=== PATIENT | female | born 1975 | race Caucasian/White ===

== ENCOUNTER 2017-04-07 09:17 | Outpatient (CLI) | payer MEDICAID ==
[2017-04-07 13:01] LABS: BASOPHILS # (AUTO) 0.1 10^3/uL (0.0-0.1); BASOPHILS % (AUTO) 0.7 %; EOSINOPHILS # (AUTO) 0.4 10^3/uL (0.0-0.7); EOSINOPHILS % (AUTO) 5.1 %; HCT - HEMATOCRIT 38.8 % (37.0-47.0); HGB - HEMOGLOBIN 12.9 g/dL (12.0-16.0); LYMPHOCYTES % (AUTO) 24.2 %; MEAN CORPUSCULAR HEMOGLOBIN 28.4 pg (27.0-31.0); MEAN CORPUSCULAR HGB CONC 33.3 g/dL (32.0-36.0); MEAN CORPUSCULAR VOLUME 85.3 fL (81.0-99.0); MONOCYTES # (AUTO) 0.5 10^3/uL (0.0-1.0); MONOCYTES % (AUTO) 6.3 %; NEUTROPHILS # (AUTO) 5.3 10^3/uL (1.5-6.6); NEUTROPHILS % (AUTO) 63.7 %; RED BLOOD COUNT 4.55 10^6/uL (4.20-5.40); RED CELL DISTRIBUTION WIDTH 14.2 % (12.0-15.0); UNCORRECTED WHITE BLOOD COUNT 8.3 x10^3/uL; WHITE BLOOD COUNT 8.3 x10^3/uL (4.8-10.8)
[2017-04-07 13:21] LABS: ALBUMIN/GLOBULIN RATIO 1.4 (1.0-2.2); BILIRUBIN,TOTAL 0.4 mg/dL (0.2-1.0); BUN - BLOOD UREA NITROGEN 14 mg/dL (6-20); CALCIUM 9.1 mg/dL (8.5-10.3); CARBON DIOXIDE - CO2 26 mmol/L (21-32); CHLORIDE 106 mmol/L (101-111); CHOL/HDL RATIO 3.6 (<4.4); CHOLESTEROL 199 mg/dL; CREATININE 0.8 mg/dL (0.4-1.0); GFR - MDRD 78 (>89); GLUCOSE 106 mg/dL (70-100); HDL CHOLESTEROL 56 mg/dL; LDL/HDL RATIO 2.2 (<4.4); POTASSIUM 3.9 mmol/L (3.5-5.0); SODIUM 139 mmol/L (135-145); TOTAL PROTEIN 7.1 g/dL (6.7-8.2); TRIGLYCERIDES 105 mg/dL; VLDL CHOLESTEROL 21 mg/dL
== END 2017-04-07 09:18 | disposition home or self-care (01) ==
LOC: LAB.N 09:17
PROVIDERS: ATTEND Family Medicine
DX: F41.1 Generalized anxiety disorder (principal); G89.4 Chronic pain syndrome; Z79.899 Other long term (current) drug therapy
CPT/HCPCS: 36415; 80053; 80061; 84443; 85025

== ENCOUNTER 2017-05-16 20:15 | Emergency (ER) | payer MEDICAID ==
--- NOTE | 2017-05-16 21:08 | ED Physician Documentation ---
History of Present Illness - Stated complaint Stated Complaint: RT HIP PX/ANXIETY - Chief complaint Chief Complaint: Ext Problem - History obtained from History obtained from: Patient - History of Present Illness Timing: How many weeks ago (3) Pain level max: 9 Pain level now: 9 Improved by: rest Worsened by: movement - Additonal information Additional information: States R hip pain chronically, worse for past 3 weeks. States worse with movement. Takes tizanidine and oxycodone daily. Is on 40mg of oxycodone daily. No recent injury. No falls. Patient is on a pain management contract. 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 - Present Medications Home Medications: Ambulatory Orders Medication Instructions Recorded Confirmed Albuterol Sulfate [Albuterol 2 puffs INH Q6HR 06/12/14 05/16/17 Sulfate Hfa] Fluticasone/Salmeterol [Advair 1 puffs INH DAILY 06/12/14 05/16/17 500-50 Diskus] Hydroxyzine HCl 25 mg PO DAILY 06/12/14 05/16/17 oxyCODONE [Roxicodone] 5 mg PO DAILY 06/12/14 05/16/17 Fluticasone [Flonase] 1 sprays TAMMY BID #1 bottle 03/08/15 05/16/17 Butalb/Acetaminophen/Caffeine 1 tab PO PRN PRN 05/16/17 05/16/17 [Piytdg-Kdunxqrc-Hfbs 50-325-40] LORazepam [Ativan] 0.5 mg PO Q8H PRN #7 tablet 05/16/17 Prednisone 40 mg PO DAILY #10 tablet 05/16/17 - Allergies Allergies/Adverse Reactions: Allergies Allergy/AdvReac Type Severity Reaction Status Date / Time baclofen Allergy Respiratory Verified 05/16/17 20:43 NSAIDS (Non-Steroidal Allergy Edema Verified 05/16/17 20:43 Anti-Inflamma ipratropium AdvReac Unknown Verified 05/16/17 20:24 - Social History Does the pt smoke?: No Smoking Status: Never smoker Does the pt drink ETOH?: No Does the pt have substance abuse?: No - Immunizations Immunizations are current?: No - POLST Patient has POLST: No PD ED PE NORMAL - Vitals Vital signs reviewed: Yes - General General: Alert and oriented X 3, No acute distress - Neck Neck: Supple, no meningeal sign - Respiratory Respiratory: No respiratory distress, Clear bilaterally - Abdomen Abdomen: Soft, Non tender, Non distended - Back Back: No spinal TTP - Derm Derm: Warm and dry - Extremities Extremities: Other (Mild tenderness about the right hip. There is full range of motion present, but with some pain. No overlying skin changes. No evidence of septic joint. Neurovascularly intact) - Neuro Neuro: Alert and oriented X 3 - Psych Psych: Normal mood, Normal affect Results - Vitals Vitals: Vital Signs - 24 hr 05/16/17 05/16/17 20:21 21:35 Temperature 37.2 C Heart Rate 102 H 90 Respiratory 14 16 Rate Blood Pressure 168/98 H 145/88 H O2 Saturation 100 99 Oxygen O2 Source Room air - Labs Labs: Laboratory Tests 05/16/17 05/16/17 20:10 20:10 Urine Color YELLOW Urine Clarity HAZY Urine pH 6.0 Ur Specific [place] 1.010 Urine Protein NEGATIVE Urine Glucose (UA) NEGATIVE Urine Ketones NEGATIVE Urine Occult Blood SMALL H Urine Nitrite NEGATIVE Urine Bilirubin NEGATIVE Urine Urobilinogen 0.2 (NORMAL) Ur Leukocyte Esterase NEGATIVE Urine RBC 6-10 H Urine WBC 6-10 H Ur Squamous Epith Cells NONE SEEN Urine Bacteria Rare Ur Microscopic Review INDICATED Urine Culture Comments INDICATED Urine HCG, Qual NEGATIVE Urine Opiates Screen NEGATIVE Ur Oxycodone Screen POSITIVE H Urine Methadone Screen NEGATIVE Ur Propoxyphene Screen NEGATIVE Ur Barbiturates Screen POSITIVE H Ur Tricyclics Screen NEGATIVE Ur Phencyclidine Scrn NEGATIVE Ur Amphetamine Screen NEGATIVE U Methamphetamines Scrn NEGATIVE U Benzodiazepines Scrn NEGATIVE Urine Cocaine Screen NEGATIVE U Cannabinoids Screen NEGATIVE PD MEDICAL DECISION MAKING - ED course Complexity details: reviewed results, re-evaluated patient, considered differential, d/w patient ED course: Patient is a 41-year-old female who presents to the emergency department with worsening right hip pain. She does use a cane to ambulate at home, but is not currently using this in the emergency department. Steroids have helped in the past and so was given a dose of dexamethasone will prescribe prednisone for home. She also states she has increasing anxiety and is out of her anxiety medication. Will prescribe a small amount of benzodiazepines for her. She is on the pain management contract and does not want any narcotics at this time. Patient is also driving home. She was given crutches to help take the weight off of the leg, but is using them more as assistive walking devices. Patient is well-appearing, nontoxic. Afebrile. Patient counseled regarding signs and symptoms for which I believe and urgent re-evaluation would be necessary. Patient with good understanding of and agreement to plan and is comfortable going home at this time This document was made in part using voice recognition software. While efforts are made to proofread this document, sound alike and grammatical errors may occur. Departure - Departure Disposition: Home, Self Care Clinical Impression: Anxiety Osteoarthritis Qualifiers: Osteoarthritis location: hip Osteoarthritis type: unspecified Laterality: right Qualified Code(s): M16.11 - Unilateral primary osteoarthritis, right hip Condition: Good Instructions: ED Degenerative Joint Disease Follow-Up: Michael Dumont MD [Primary Care Provider] - Within 1 week Prescriptions: LORazepam [Ativan] 0.5 mg PO Q8H PRN #7 tablet PRN Reason: Anxiety Prednisone 40 mg PO DAILY #10 tablet Comments: Return if you worsen. do not drive or operate heavy machinery while taking ativan. Your blood pressure was elevated today on check in to the emergency department. This does not mean that you have hypertension, it is a common phenomenon to check into the emergency department and have elevated blood pressure. I recommend that you see your primary care physician within the week to have it rechecked when you're feeling better. Discharge Date/Time: 05/16/17 21:41
[2017-05-16 21:22] LABS: BILIRUBIN,URINE NEGATIVE (NEGATIVE)
[2017-05-16] MEDS ORDERED: CHERRY SYRUP 10 ML UDC PO ONE (21:24)
[2017-05-16] MEDS ORDERED: DEXAMETHASONE 10 MG/ML VIAL ONE (21:24)
[2017-05-16] MEDS ORDERED: DEXAMETHASONE 10 MG/ML VIAL PO STA (21:24)
[2017-05-16 21:27] LABS: UA w/ MICROSCOPIC CHARGE YES
[2017-05-16 21:39] LABS: HCG UR QUAL NEGATIVE
[2017-05-16 21:41] VITALS: BP 145/88
[2017-05-16 21:53] LABS: UR CULTURE IF IND INDICATED
== END 2017-05-16 21:41 | disposition home or self-care (01) ==
LOC: ED 20:15
DX: F41.9 Anxiety disorder, unspecified (principal); M16.11 Unilateral primary osteoarthritis, right hip; R03.0 Elevated blood-pressure reading, without diagnosis of hypertension; J45.909 Unspecified asthma, uncomplicated
CPT/HCPCS: 80306; 81001; 81025; 87086; 99283; A9270; 81003

== ENCOUNTER 2017-10-06 18:49 | Emergency (ER) | payer MEDICAID ==
[2017-10-06 19:10] VITALS: BP 150/99
--- NOTE | 2017-10-06 19:58 | XRAY Preliminary Report ---
Exam: XR CHEST 2 VIEW PA/LAT IMPRESSION: No acute disease. [facility] SITE ID: [id number]
--- NOTE | 2017-10-06 20:01 | XRAY Report ---
EXAM: CHEST RADIOGRAPHY EXAM DATE: 10/06/2017 07:42 PM. CLINICAL HISTORY: Cough. COMPARISON: 09/11/2017, 03/28/2011, and 08/31/2010. TECHNIQUE: 2 views. FINDINGS: Lungs/Pleura: No localized infiltrate, consolidation, effusion, or pneumothorax. Mediastinum: Heart and mediastinal contours are unremarkable. Other: Mild degenerative changes. IMPRESSION: No acute disease. [facility] Referring Provider Line: [phone] SITE ID: [id number]
--- NOTE | 2017-10-06 20:56 | ED Physician Documentation ---
PD HPI URI - Stated complaint Stated Complaint: CONGESTION/ST - Chief complaint Chief Complaint: Resp - History obtained from History obtained from: Patient - History of Present Illness Timing - onset: How many days ago (10) Timing duration: Days (10) Timing details: Gradual onset, Still present (was improving some after a week, now worse the past few days.) Associated symptoms: Fever, Sinus pain, Sore throat, Productive cough Contributing factors: COPD / asthma. No: Sick contact, Travel, Immunocompromised Worsened by: Activity, Breathing, Other (cough) Similar symptoms before: Has not had sx before Recently seen: Not recently seen Review of Systems Constitutional: reports: Fever, Chills, Myalgias Nose: reports: Rhinorrhea / runny nose, Sinus pressure / pain Cardiac: denies: Chest pain / pressure Respiratory: reports: Dyspnea, Cough GI: reports: Vomiting. 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: section - Present Medications Home Medications: Ambulatory Orders Medication Instructions Recorded Confirmed Albuterol Sulfate [Albuterol 2 puffs INH Q6HR 06/12/14 05/16/17 Sulfate Hfa] Fluticasone/Salmeterol [Advair 1 puffs INH DAILY 06/12/14 05/16/17 500-50 Diskus] Hydroxyzine HCl 25 mg PO DAILY 06/12/14 05/16/17 oxyCODONE [Roxicodone] 5 mg PO DAILY 06/12/14 05/16/17 Fluticasone [Flonase] 1 sprays TAMMY BID #1 bottle 03/08/15 05/16/17 Butalb/Acetaminophen/Caffeine 1 tab PO PRN PRN 05/16/17 05/16/17 [Gaurnt-Xjclzreh-Rogo 50-325-40] LORazepam [Ativan] 0.5 mg PO Q8H PRN #7 tablet 05/16/17 predniSONE [Prednisone] 40 mg PO DAILY #10 tablet 05/16/17 Amoxicillin 500 mg PO Q8H #30 capsule 09/11/17 Oxymetazoline HCl [Afrin] 2 spray NS BID PRN #1 bottle 09/11/17 predniSONE [Deltasone] 60 mg PO DAILY 5 Days tablet 09/11/17 Albuterol Sulf [Ventolin Hfa 1 - 2 puffs INH Q4HR PRN #1 inhaler 10/06/17 Inhaler] Azithromycin [Zithromax] 250 mg PO DAILY #4 tablet 10/06/17 Benzonatate [Tessalon] 100 mg PO TID PRN #25 capsule 10/06/17 Dexamethasone [Decadron] 4 mg PO DAILY #5 tablet 10/06/17 guaiFENesin/CODEINE [Robitussin AC] 10 ml PO Q6H PRN #240 ml 10/06/17 - Allergies Allergies/Adverse Reactions: Allergies Allergy/AdvReac Type Severity Reaction Status Date / Time baclofen Allergy Respiratory Verified 10/06/17 19:10 NSAIDS (Non-Steroidal Allergy Edema Verified 10/06/17 19:10 Anti-Inflamma ipratropium AdvReac Unknown Verified 10/06/17 19:10 - Social History Does the pt smoke?: No Smoking Status: Never smoker Does the pt drink ETOH?: No Does the pt have substance abuse?: No - Immunizations Immunizations are current?: No - POLST Patient has POLST: No PD ED PE NORMAL - Vitals Vital signs reviewed: Yes - General General: Alert and oriented X 3, Well developed/nourished - HEENT HEENT: Ears normal, Pharynx benign - Neck Neck: Supple, no meningeal sign, No adenopathy - Cardiac Cardiac: RRR, No murmur - Respiratory Respiratory: Clear bilaterally - Abdomen Abdomen: Soft, Non tender - Back Back: No CVA TTP - Derm Derm: Normal color, Warm and dry - Extremities Extremities: No deformity, No tenderness to palpate, No edema, No calf tenderness / cord - Neuro Neuro: Alert and oriented X 3, No motor deficit, Normal speech Results - Vitals Vitals: Oxygen O2 Source Room air - Rads (name of study) chest xray Radiology: Prelim report reviewed (no acute process) PD MEDICAL DECISION MAKING - ED course Complexity details: considered differential, d/w patient Departure - Departure Disposition: Home, Self Care Clinical Impression: Bronchitis Otitis media Qualifiers: Otitis media type: suppurative Chronicity: acute Laterality: left Recurrence: not specified as recurrent Spontaneous tympanic membrane rupture: without spontaneous rupture Qualified Code(s): H66.002 - Acute suppurative otitis media without spontaneous rupture of ear drum, left ear Clinical Impression: (Ruled Out): Pneumonia Condition: Stable Record reviewed to determine appropriate education?: Yes Instructions: ED Upper Resp Infec Abx Tx, ED Otitis Media Acute Adult Follow-Up: Екатерина Vigil ARNP [Primary Care Provider] - Prescriptions: Albuterol Sulf [Ventolin Hfa Inhaler] 1 - 2 puffs INH Q4HR PRN #1 inhaler PRN Reason: Shortness Of Air/Wheezing Azithromycin [Zithromax] 250 mg PO DAILY #4 tablet Benzonatate [Tessalon] 100 mg PO TID PRN #25 capsule PRN Reason: Cough Dexamethasone [Decadron] 4 mg PO DAILY #5 tablet guaiFENesin/CODEINE [Robitussin AC] 10 ml PO Q6H PRN #240 ml PRN Reason: Cough Comments: Drink lots of fluids. Continue albuterol inhaler 2 puffs 4 times a day and extra doses as needed. Use Decadron steroid daily for 5 more days. Finish the Zithromax course of 5 days treatment. Use Tessalon if needed for cough. Add hydrocodone or codeine as a cough suppressant and to help with pain. The Zithromax should help with bronchial and ear infections. Recheck if not improving over the next few days. Discharge Date/Time: 10/06/17 22:17
[2017-10-06] MEDS ORDERED: ALBUTEROL NEB 2.5 MG/3 ML INH STA (21:17)
[2017-10-06] MEDS ORDERED: DEXAMETHASONE 10 MG/ML VIAL PO STA (21:17)
[2017-10-06] MEDS ORDERED: HYDROcod/ACET 5/325 Prepack 6 PO ONE ×2 (21:17→21:29)
[2017-10-06] MEDS ORDERED: AZITHROMYCIN 250 MG TABLET PO STA (21:17)
[2017-10-06] MEDS ORDERED: BENZONATATE 100 MG CAPSULE PO STA (21:17)
[2017-10-06] MEDS ORDERED: AZITHROMYCIN 250 MG TABLET PO ONE (21:28)
[2017-10-06] MEDS ORDERED: BENZONATATE 100 MG CAPSULE PO ONE (21:28)
[2017-10-06] MEDS ORDERED: DEXAMETHASONE 10 MG/ML VIAL ONE (21:28)
[2017-10-06] MEDS ORDERED: CHERRY SYRUP 10 ML UDC PO ONE (21:29)
[2017-10-06] MEDS ORDERED: ALBUTEROL NEB 2.5 MG/3 ML INH ONE (21:42)
== END 2017-10-06 22:17 | disposition home or self-care (01) ==
LOC: ED 18:49
DX: J40 Bronchitis, not specified as acute or chronic (principal); H66.002 Acute suppurative otitis media without spontaneous rupture of ear drum, left ear
CPT/HCPCS: 71020; 94640; 99283; A9270; J7613

== ENCOUNTER 2018-06-11 22:20 | Emergency (ER) | payer MEDICAID ==
--- NOTE | 2018-06-11 22:35 | ED Physician Documentation ---
History of Present Illness - Stated complaint Stated Complaint: L KNEE/LEG PX - Chief complaint Chief Complaint: Ext Problem - History obtained from History obtained from: Patient - History of Present Illness Timing: How many weeks ago (1) Pain level max: 8 Pain level now: 6 Improved by: rest Worsened by: movement, weight-bearing - Additonal information Additional information: c/o 1 week of left knee pain and swelling, sudden onset when she sustained a twisting injury to the knee Review of Systems Constitutional: denies: Fever Cardiac: denies: Chest pain / pressure Respiratory: denies: Dyspnea Skin: denies: Rash Musculoskeletal: reports: Joint pain, Extremity swelling, Joint swelling, Pain with weight bearing Neurologic: denies: Focal weakness, Numbness PD PAST MEDICAL HISTORY - Past Medical History Cardiovascular: None Respiratory: Asthma Endocrine/Autoimmune: None GI: None 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 : None HEENT: None Psych: Anxiety Musculoskeletal: Osteoarthritis Derm: None - Past Surgical History Past Surgical History: Yes /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: section - Present Medications Home Medications: Ambulatory Orders Medication Instructions Recorded Confirmed Albuterol Sulfate [Albuterol 2 puffs INH Q6HR 06/12/14 05/16/17 Sulfate Hfa] Fluticasone/Salmeterol [Advair 1 puffs INH DAILY 06/12/14 05/16/17 500-50 Diskus] Hydroxyzine HCl 25 mg PO DAILY 06/12/14 05/16/17 oxyCODONE [Roxicodone] 5 mg PO DAILY 06/12/14 05/16/17 Fluticasone [Flonase] 1 sprays TAMMY BID #1 bottle 03/08/15 05/16/17 Butalb/Acetaminophen/Caffeine 1 tab PO PRN PRN 05/16/17 05/16/17 [Iyqctv-Codndtkh-Xqnr 50-325-40] LORazepam [Ativan] 0.5 mg PO Q8H PRN #7 tablet 05/16/17 predniSONE [Prednisone] 40 mg PO DAILY #10 tablet 05/16/17 Amoxicillin 500 mg PO Q8H #30 capsule 09/11/17 Oxymetazoline HCl [Afrin] 2 spray NS BID PRN #1 bottle 09/11/17 predniSONE [Deltasone] 60 mg PO DAILY 5 Days tablet 09/11/17 Albuterol Sulf [Ventolin Hfa 1 - 2 puffs INH Q4HR PRN #1 inhaler 10/06/17 Inhaler] Azithromycin [Zithromax] 250 mg PO DAILY #4 tablet 10/06/17 Benzonatate [Tessalon] 100 mg PO TID PRN #25 capsule 10/06/17 Dexamethasone [Decadron] 4 mg PO DAILY #5 tablet 10/06/17 guaiFENesin/CODEINE [Robitussin AC] 10 ml PO Q6H PRN #240 ml 10/06/17 Cyclobenzaprine [Flexeril] 10 mg PO TID PRN #20 tablet 06/12/18 HYDROcod/ACETAM 5/325 [[place] 5/325] 1 - 2 ea PO Q6H PRN #15 tablet 06/12/18 predniSONE [Prednisone] 40 mg PO DAILY #6 tablet 06/12/18 - Allergies Allergies/Adverse Reactions: Allergies Allergy/AdvReac Type Severity Reaction Status Date / Time baclofen Allergy Respiratory Verified 06/11/18 22:34 NSAIDS (Non-Steroidal Allergy Edema Verified 06/11/18 22:34 Anti-Inflamma ipratropium AdvReac Unknown Verified 06/11/18 22:34 - Social History Does the pt smoke?: No Smoking Status: Never smoker Does the pt drink ETOH?: No Does the pt have substance abuse?: No - Immunizations Immunizations are current?: No - POLST Patient has POLST: No PD ED PE NORMAL - Vitals Vital signs reviewed: Yes - General General: Alert and oriented X 3, No acute distress, Well developed/nourished - Cardiac Cardiac: RRR, No murmur - Respiratory Respiratory: No respiratory distress, Clear bilaterally - Derm Derm: Normal color, Warm and dry, No rash Results - Vitals Vitals: Vital Signs - 24 hr 06/11/18 06/11/18 06/11/18 22:31 23:15 23:33 Temperature 36.8 C Heart Rate 79 Respiratory 17 17 16 Rate Blood Pressure 145/95 H O2 Saturation 96 06/12/18 06/12/18 00:56 02:10 Temperature 36.5 C Heart Rate 83 Respiratory 12 17 Rate Blood Pressure 149/92 H O2 Saturation 96 Oxygen O2 Source Room air - Rads (name of study) LLE US Radiology: Prelim report reviewed, See rad report left knee xrays Radiology: Prelim report reviewed, See rad report PD MEDICAL DECISION MAKING - ED course Complexity details: reviewed results, re-evaluated patient, considered differential, d/w patient - Sepsis Event Vital Signs: Vital Signs - 24 hr 06/11/18 06/11/18 06/11/18 22:31 23:15 23:33 Temperature 36.8 C Heart Rate 79 Respiratory 17 17 16 Rate Blood Pressure 145/95 H O2 Saturation 96 06/12/18 06/12/18 00:56 02:10 Temperature 36.5 C Heart Rate 83 Respiratory 12 17 Rate Blood Pressure 149/92 H O2 Saturation 96 Oxygen O2 Source Room air Departure - Departure Disposition: Home, Self Care Clinical Impression: Left knee sprain Qualifiers: Encounter type: initial encounter Involved ligament of knee: unspecified ligament Qualified Code(s): S83.92XA - Sprain of unspecified site of left knee, initial encounter Condition: Good Instructions: ED Bandage Elastic Wrap, ED Knee Pain UKO, ED Sprain Knee Follow-Up: HARLEY HODGE [Primary Care Provider] - Within 1 week Prescriptions: Cyclobenzaprine [Flexeril] 10 mg PO TID PRN #20 tablet PRN Reason: Spasms HYDROcod/ACETAM 5/325 [[place] 5/325] 1 - 2 ea PO Q6H PRN #15 tablet PRN Reason: Pain predniSONE [Prednisone] 40 mg PO DAILY #6 tablet Discharge Date/Time: 06/12/18 02:12
--- NOTE | 2018-06-11 23:29 | XRAY Report ---
Procedure Date: 06/11/2018 Accession Number: [id number] / [id number] Procedure: XR - Knee 3 View LT CPT Code: FULL RESULT: EXAM: LEFT KNEE RADIOGRAPHY EXAM DATE: 06/11/2018 11:15 PM. CLINICAL HISTORY: Left knee pain. COMPARISON: None. TECHNIQUE: 3 views. FINDINGS: Bones: Normal. No fractures or bone lesions. Joints: Normal. No effusion. No subluxations. Soft Tissues: Normal. No soft tissue swelling. IMPRESSION: Normal knee radiography. [facility]
[2018-06-12 00:57] VITALS: BP 149/92
--- NOTE | 2018-06-12 01:32 | Ultrasound Report ---
Procedure Date: 06/12/2018 Accession Number: [id number] / [id number] Procedure: US - Duplex Ext Veins Left CPT Code: FULL RESULT: EXAM: LEFT LOWER EXTREMITY VENOUS ULTRASOUND EXAM DATE: 06/12/2018 12:16 AM. CLINICAL HISTORY: Pain, swelling. COMPARISON: None. TECHNIQUE: Real-time sonographic vascular imaging was performed by the window and door installer through the lower extremity utilizing both color-flow and Doppler spectral analysis. Multiple outside industrial sales representative static images were saved for review. FINDINGS: Common Femoral Vein (CFV): Normal. CFV-GSV Junction: Normal. Profunda Femoral Vein (PFV): Normal. Femoral Vein (FV) Prox: Normal. Femoral Vein (FV) Mid: Normal. Femoral Vein (FV) Dist: Normal. Popliteal Vein: Normal. Posterior Tibial Veins: Suboptimally visualized. Peroneal Veins: Suboptimally visualized. Other: The examination is limited, as he patient was unable to tolerate compression. IMPRESSION: Examination limited by patient's inability to tolerate compression, but no definite evidence for deep venous thrombosis in the visualized segments. [facility]
[2018-06-12] MEDS ORDERED: HYDROcod/ACET 5/325 Prepack 4 PO STA (01:58)
[2018-06-12] MEDS ORDERED: CYCLOBENZAPRINE 10 MG Prepack 2 PO PRN (01:58)
[2018-06-12] MEDS ORDERED: predniSONE 20 MG TABLET PO STA (01:59)
== END 2018-06-12 02:12 | disposition home or self-care (01) ==
LOC: ED 22:20
DX: S83.92XA Sprain of unspecified site of left knee, initial encounter (principal); X50.1XXA Overexertion from prolonged static or awkward postures, initial encounter
CPT/HCPCS: 73562; 93971; 99283; J7512

== ENCOUNTER 2018-09-12 22:11 | Emergency (ER) | payer MEDICAID ==
[2018-09-12] MEDS ORDERED: ALBUTEROL NEB 2.5 MG/3 ML INH STA (22:27)
[2018-09-12] MEDS ORDERED: DEXAMETHASONE 10 MG/ML VIAL PO STA (22:28)
[2018-09-12] MEDS ORDERED: CHERRY SYRUP 10 ML UDC PO ONE (22:31)
--- NOTE | 2018-09-12 22:54 | ED Physician Documentation ---
History of Present Illness - Stated complaint Stated Complaint: ASTHMA ATTACK - Chief complaint Chief Complaint: Resp - Additonal information Additional information: 43-year-old female presents the emergency department with complaints of wheezing and shortness of breath which is not improved with her normal albuterol treatments. The patient also reports URI symptoms which is triggered her asthma. Symptoms are described as moderate. No other associated symptoms. Symptoms were worse this evening just prior to arrival. 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 : None HEENT: None Psych: Anxiety Musculoskeletal: Osteoarthritis Derm: None - Past Surgical History Past Surgical History: 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: 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 - Present Medications Home Medications: Ambulatory Orders Medication Instructions Recorded Confirmed Albuterol Sulfate [Albuterol 2 puffs INH Q6HR 06/12/14 05/16/17 Sulfate Hfa] Fluticasone/Salmeterol [Advair 1 puffs INH DAILY 06/12/14 05/16/17 500-50 Diskus] Hydroxyzine HCl 25 mg PO DAILY 06/12/14 05/16/17 oxyCODONE [Roxicodone] 5 mg PO DAILY 06/12/14 05/16/17 Fluticasone [Flonase] 1 sprays TAMMY BID #1 bottle 03/08/15 05/16/17 Butalb/Acetaminophen/Caffeine 1 tab PO PRN PRN 05/16/17 05/16/17 [Sytdbv-Tnbhyvyl-Eoxn 50-325-40] LORazepam [Ativan] 0.5 mg PO Q8H PRN #7 tablet 05/16/17 predniSONE [Prednisone] 40 mg PO DAILY #10 tablet 05/16/17 Amoxicillin 500 mg PO Q8H #30 capsule 09/11/17 Oxymetazoline HCl [Afrin] 2 spray NS BID PRN #1 bottle 09/11/17 predniSONE [Deltasone] 60 mg PO DAILY 5 Days tablet 09/11/17 Albuterol Sulf [Ventolin Hfa 1 - 2 puffs INH Q4HR PRN #1 inhaler 10/06/17 Inhaler] Azithromycin [Zithromax] 250 mg PO DAILY #4 tablet 10/06/17 Benzonatate [Tessalon] 100 mg PO TID PRN #25 capsule 10/06/17 Dexamethasone [Decadron] 4 mg PO DAILY #5 tablet 10/06/17 guaiFENesin/CODEINE [Robitussin AC] 10 ml PO Q6H PRN #240 ml 10/06/17 Cyclobenzaprine [Flexeril] 10 mg PO TID PRN #20 tablet 06/12/18 HYDROcod/ACETAM 5/325 [[place] 5/325] 1 - 2 ea PO Q6H PRN #15 tablet 06/12/18 predniSONE [Prednisone] 40 mg PO DAILY #6 tablet 06/12/18 Benzonatate [Tessalon Perle] 100 - 200 mg PO TID PRN #30 capsule 09/12/18 - Allergies Allergies/Adverse Reactions: Allergies Allergy/AdvReac Type Severity Reaction Status Date / Time baclofen Allergy Respiratory Verified 09/12/18 22:19 NSAIDS (Non-Steroidal Allergy Edema Verified 09/12/18 22:19 Anti-Inflamma ipratropium AdvReac Unknown Verified 09/12/18 22:19 - Social History Does the pt smoke?: No Smoking Status: Never smoker Does the pt drink ETOH?: No Does the pt have substance abuse?: No - Immunizations Immunizations are current?: No - POLST Patient has POLST: No PD ED PE NORMAL - General General: Alert and oriented X 3, No acute distress - HEENT HEENT: Atraumatic, PERRL, EOMI, Ears normal - Neck Neck: Supple, no meningeal sign - Cardiac Cardiac: RRR, Strong equal pulses - Respiratory Respiratory: No respiratory distress. No: Clear bilaterally (Bilateral expiratory wheezing) - Back Back: No CVA TTP - Derm Derm: Normal color - Neuro Neuro: Alert and oriented X 3, Normal speech - Psych Psych: Normal mood Results - Vitals Vitals: Vital Signs - 24 hr 11/07/18 11/07/18 11/07/18 22:13 22:44 23:37 Temperature 36.8 C Heart Rate 88 101 H Respiratory 18 20 16 Rate Blood Pressure 168/84 H 155/92 H O2 Saturation 97 100 Oxygen O2 Source Room air PD MEDICAL DECISION MAKING - ED course ED course: The patient was treated with albuterol in the emergency department and had good improvement. I reevaluation the patient resting comfortably and her symptoms are under much better control. Currently, the patient appears appropriate for discharge and ongoing outpatient management. The patient's symptoms seem to be triggered from a viral upper respiratory tract infection. I discussed with the patient warning signs and recommended returning to the emergency department immediately for any worsening or any concerns. Departure - Departure Disposition: 01 Home, Self Care Clinical Impression: Viral URI with cough Asthma exacerbation Qualifiers: Asthma severity: moderate Asthma persistence: unspecified Qualified Code(s): J45.901 - Unspecified asthma with (acute) exacerbation Condition: Good Instructions: ED Bronchitis Asthmatic Ch Follow-Up: HARLEY HODGE [Primary Care Provider] - Within 1 week Prescriptions: Benzonatate [Tessalon Perle] 100 - 200 mg PO TID PRN #30 capsule PRN Reason: Cough Comments: Please return to the emergency department for worsening symptoms or any concerns Discharge Date/Time: 09/12/18 23:44
[2018-09-12 23:44] VITALS: BP 155/92
== END 2018-09-12 23:44 | disposition home or self-care (01) ==
LOC: ED 22:11
DX: J06.9 Acute upper respiratory infection, unspecified (principal); J45.901 Unspecified asthma with (acute) exacerbation; Z79.899 Other long term (current) drug therapy; Z79.51 Long term (current) use of inhaled steroids
CPT/HCPCS: 99283; A9270

== ENCOUNTER 2019-05-08 11:58 | Emergency (ER) | payer MEDICAID ==
[2019-05-08] MEDS ORDERED: PROPARACAINE 0.5% OPHTH DROPS 15 ML EACHEYE STA (12:15)
--- NOTE | 2019-05-08 12:16 | ED Physician Documentation ---
PD HPI OPHTHO - Stated complaint Stated Complaint: RT EYE INJ - Chief complaint Chief Complaint: Heent - History obtained from History obtained from: Patient - History of Present Illness Timing - onset: Last night Timing - duration: Days (1) Timing - details: Abrupt onset, Still present Location: Right Quality / character: Sharp Associated symptoms: Redness, FB sensation (She states she was wrestling with her teenage daughter and accidentally got poked in the eye with the finger. She did irrigated out last night in case there was something in it. She states it was uncomfortable for eye motion and some light sensitivity. The discomfort continued into today. There was some slight crusting along the medial canthus in the morning but no ongoing discharge.), Photophobia. No: Swelling, Discharge, Loss of vision, Headache Contributing factors: Blunt trauma. No: Wears contacts Similar symptoms before: Has not had sx before Recently seen: Not recently seen Review of Systems Constitutional: denies: Fever, Chills, Myalgias Eyes: reports: Photophobia, Irritation. 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: None : None HEENT: None Psych: Anxiety Musculoskeletal: Osteoarthritis Derm: None - Past Surgical History Past Surgical History: Yes /REGISTERED DIET TECHNICIAN: section - Present Medications Home Medications: Ambulatory Orders Medication Instructions Recorded Confirmed Albuterol Sulfate [Albuterol 2 puffs INH Q6HR 06/12/14 05/16/17 Sulfate Hfa] Fluticasone/Salmeterol [Advair 1 puffs INH DAILY 06/12/14 05/16/17 500-50 Diskus] RX: Hydroxyzine HCl 25 mg PO DAILY 06/12/14 05/16/17 RX: oxyCODONE [Roxicodone] 5 mg PO DAILY 06/12/14 05/16/17 Fluticasone [Flonase] 1 sprays TAMMY BID #1 bottle 03/08/15 05/16/17 Butalb/Acetaminophen/Caffeine 1 tab PO PRN PRN 05/16/17 05/16/17 [Lwnqkj-Ppyrneej-Pgzf 50-325-40] LORazepam [Ativan] 0.5 mg PO Q8H PRN #7 tablet 05/16/17 RX: predniSONE [Prednisone] 40 mg PO DAILY #10 tablet 05/16/17 Oxymetazoline HCl [Afrin] 2 spray NS BID PRN #1 bottle 09/11/17 RX: Amoxicillin 500 mg PO Q8H #30 capsule 09/11/17 RX: predniSONE [Deltasone] 60 mg PO DAILY 5 Days tablet 09/11/17 Azithromycin [Zithromax] 250 mg PO DAILY #4 tablet 10/06/17 Benzonatate [Tessalon] 100 mg PO TID PRN #25 capsule 10/06/17 RX: Albuterol Sulf [Ventolin Hfa 1 - 2 puffs INH Q4HR PRN #1 inhaler 10/06/17 Inhaler] dexAMETHasone [Decadron] 4 mg PO DAILY #5 tablet 10/06/17 guaiFENesin/CODEINE [Robitussin AC] 10 ml PO Q6H PRN #240 ml 10/06/17 Cyclobenzaprine [Flexeril] 10 mg PO TID PRN #20 tablet 06/12/18 RX: HYDROcod/ACETAM 5/325 [[place] 1 - 2 ea PO Q6H PRN #15 tablet 06/12/18 5/325] predniSONE [Prednisone] 40 mg PO DAILY #6 tablet 06/12/18 Benzonatate [Tessalon Perle] 100 - 200 mg PO TID PRN #30 capsule 09/12/18 RX: Ketotifen Fumarate 2 drops OP QID #1 bottle 05/08/19 Sulfacetamide 10% Ophth Drops 1 drops OPTH Q3H #1 bottle 05/08/19 [Sulfamide 10% Ophth Drops] - Allergies Allergies/Adverse Reactions: Allergies Allergy/AdvReac Type Severity Reaction Status Date / Time baclofen Allergy Respiratory Verified 09/12/18 22:19 NSAIDS (Non-Steroidal Allergy Edema Verified 09/12/18 22:19 Anti-Inflamma ipratropium AdvReac Unknown Verified 09/12/18 22:19 - Social History Does the pt smoke?: No Smoking Status: Never smoker Does the pt drink ETOH?: No Does the pt have substance abuse?: No - Immunizations Immunizations are current?: No - POLST Patient has POLST: No PD ED PE NORMAL - Vitals Vital signs reviewed: Yes - General General: Alert and oriented X 3, Well developed/nourished, Other (She is holding her right eye closed with her hand. She has discomfort with eye movement.) - HEENT HEENT: PERRL, EOMI PD ED PE EXPANDED - Eyes Eyes: Right eye, Injected conj/sclera, Corneal abrasion (circular small superficial abrasion right eye over iris area, at the 3 o'clock position. No deep uptake. ), Fluorescein uptake. No: Eyelid injury, Exudate, Conj/sclera FB, Corneal FB Results - Vitals Vitals: Vital Signs - 24 hr 05/08/19 05/08/19 12:04 12:58 Temperature 36.6 C 36.5 C Heart Rate 102 H 77 Respiratory 16 17 Rate Blood Pressure 149/93 H 148/99 H O2 Saturation 98 99 Oxygen O2 Source Room air PD MEDICAL DECISION MAKING - ED course Complexity details: re-evaluated patient (she feels quite improved with Proparacaine drops. This helped. Discussed use of it with the patient, in accordance with recent EM literature showing safety and efficacy provided one avoid repeat injury and does not use it more than 1-2 days withut rechecking. ), considered differential, d/w patient Departure - Departure Disposition: 01 Home, Self Care Clinical Impression: Corneal abrasion Condition: Stable Record reviewed to determine appropriate education?: Yes Instructions: ED Eye Injury Corneal Abrasion Follow-Up: Michael Belcher [Primary Care Provider] - Prescriptions: RX: Ketotifen Fumarate 2 drops OP QID #1 bottle Sulfacetamide 10% Ophth Drops [Sulfamide 10% Ophth Drops] 1 drops OPTH Q3H #1 bottle Comments: Use the antibiotic eyedrops and antihistamine eyedrops 4 times a day for the next few days. The abrasions typically heal on their own over a day or 2. There is a little bit of redness and increased blood flow through the eye which is likely irritation but will cover it for possible infection as well. Recheck if not improved over the next 1 to 2 days. Use the numbing eye drops as needed for discomfort with precautions we discussed. Discharge Date/Time: 05/08/19 13:10
[2019-05-08 12:59] VITALS: BP 148/99
== END 2019-05-08 13:10 | disposition home or self-care (01) ==
LOC: ED 11:58
DX: S05.01XA Injury of conjunctiva and corneal abrasion without foreign body, right eye, initial encounter (principal); W50.0XXA Accidental hit or strike by another person, initial encounter; Y93.83 Activity, rough housing and horseplay
CPT/HCPCS: 99283; J3490

== ENCOUNTER 2019-07-05 18:06 | Emergency (ER) | payer MEDICAID ==
[2019-07-05 18:16] VITALS: BP 141/105
[2019-07-05] MEDS ORDERED: predniSONE 20 MG TABLET PO STA (18:33)
--- NOTE | 2019-07-05 18:34 | ED Physician Documentation ---
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 Gets occasional episodes of overuse related lateral right foot pain with spasms. She has 1 of these now. Its been going on for the last few days. She feels like it came on because of its increased activity around the house. In the past she is had excellent relief with steroids with this.) Review of Systems Constitutional: reports: Reviewed and negative Cardiac: reports: Reviewed and negative Respiratory: reports: Reviewed and negative PD PAST MEDICAL HISTORY - Past Medical History Cardiovascular: None Respiratory: Asthma Neuro: None Endocrine/Autoimmune: None GI: None TRAFFIC POLICE OFFICER: None : None HEENT: None Psych: Anxiety Musculoskeletal: Osteoarthritis Derm: None - Past Surgical History Past Surgical History: Yes /TRAFFIC POLICE OFFICER: section - Present Medications Home Medications: Ambulatory Orders Medication Instructions Recorded Confirmed Albuterol Sulfate [Albuterol 2 puffs INH Q6HR 06/12/14 05/16/17 Sulfate Hfa] Fluticasone/Salmeterol [Advair 1 puffs INH DAILY 06/12/14 05/16/17 500-50 Diskus] Hydroxyzine HCl 25 mg PO DAILY 06/12/14 05/16/17 oxyCODONE [Roxicodone] 5 mg PO DAILY 06/12/14 05/16/17 Fluticasone [Flonase] 1 sprays TAMMY BID #1 bottle 03/08/15 05/16/17 Butalb/Acetaminophen/Caffeine 1 tab PO PRN PRN 05/16/17 05/16/17 [Wtixpl-Rqjjtnus-Mgzh 50-325-40] LORazepam [Ativan] 0.5 mg PO Q8H PRN #7 tablet 05/16/17 predniSONE [Prednisone] 40 mg PO DAILY #10 tablet 05/16/17 Amoxicillin 500 mg PO Q8H #30 capsule 09/11/17 Oxymetazoline HCl [Afrin] 2 spray NS BID PRN #1 bottle 09/11/17 predniSONE [Deltasone] 60 mg PO DAILY 5 Days tablet 09/11/17 Albuterol Sulf [Ventolin Hfa 1 - 2 puffs INH Q4HR PRN #1 inhaler 10/06/17 Inhaler] Azithromycin [Zithromax] 250 mg PO DAILY #4 tablet 10/06/17 Benzonatate [Tessalon] 100 mg PO TID PRN #25 capsule 10/06/17 dexAMETHasone [Decadron] 4 mg PO DAILY #5 tablet 10/06/17 guaiFENesin/CODEINE [Robitussin AC] 10 ml PO Q6H PRN #240 ml 10/06/17 Cyclobenzaprine [Flexeril] 10 mg PO TID PRN #20 tablet 06/12/18 HYDROcod/ACETAM 5/325 [[place] 5/325] 1 - 2 ea PO Q6H PRN #15 tablet 06/12/18 predniSONE [Prednisone] 40 mg PO DAILY #6 tablet 06/12/18 Benzonatate [Tessalon Perle] 100 - 200 mg PO TID PRN #30 capsule 09/12/18 Ketotifen Fumarate 2 drops OP QID #1 bottle 05/08/19 Sulfacetamide 10% Ophth Drops 1 drops OPTH Q3H #1 bottle 05/08/19 [Sulfamide 10% Ophth Drops] Hydrocodone/Acetaminophen 1 - 2 each PO Q6H PRN #14 tablet 07/05/19 [Hydrocodon-Acetaminophen 5-325] predniSONE [Deltasone] 60 mg PO DAILY 5 Days #15 tablet 07/05/19 - Allergies Allergies/Adverse Reactions: Allergies Allergy/AdvReac Type Severity Reaction Status Date / Time baclofen Allergy Respiratory Verified 07/05/19 18:17 NSAIDS (Non-Steroidal Allergy Edema Verified 07/05/19 18:17 Anti-Inflamma ipratropium AdvReac Unknown Verified 07/05/19 18:17 - Social History Does the pt smoke?: No Smoking Status: Never smoker Does the pt drink ETOH?: No Does the pt have substance abuse?: No - Immunizations Immunizations are current?: No - POLST Patient has POLST: No PD ED PE NORMAL - Vitals Vital signs reviewed: Yes - General General: Alert and oriented X 3, No acute distress - Neck Neck: Supple, no meningeal sign, No bony TTP - Extremities Extremities: Other (Right foot is flat without tenderness. There is some lateral swelling but no bony tenderness. No deformity. No evidence of infection, warmth, redness.) - Neuro Neuro: Alert and oriented X 3, Normal speech Results - Vitals Vitals: Vital Signs - 24 hr 07/05/19 18:11 Temperature 36.4 C L Heart Rate 97 Respiratory 16 Rate Blood Pressure 141/105 H O2 Saturation 95 Oxygen O2 Source Room air Departure - Departure Disposition: 01 Home, Self Care Clinical Impression: Right foot pain Condition: Good Record reviewed to determine appropriate education?: Yes Prescriptions: Hydrocodone/Acetaminophen [Hydrocodon-Acetaminophen 5-325] 1 - 2 each PO Q6H PRN #14 tablet PRN Reason: pain predniSONE [Deltasone] 60 mg PO DAILY 5 Days #15 tablet Comments: Return for new or worsening symptoms, especially fever, chills, redness, or intolerable pain. Follow-up with your doctor next week. Do not drink or drive while taking narcotic pain medication. Note that many narcotic pain relievers also contain Tylenol/acetaminophen. Please ensure that your total dose of acetaminophen from all sources does not exceed 3 g (3000 mg) per day. You may get constipated while on this medication. Take a stool softener such as Colace twice a day while you are on it. Also add an [id number]-jzg-dlijiyd laxative such as senna or MiraLAX on any day that you do not have a bowel movement. If you received a narcotic pain medication or sedative while in the emergency d epartment, do not drive for the next 24 hours. Your blood pressure was elevated today on check into the emergency department. This does not mean that you have hypertension, it is a common phenomenon to come to the emergency department and have elevated blood pressure. I recommend that you see your primary care physician within the week to have it rechecked when you are feeling better.
== END 2019-07-05 18:42 | disposition home or self-care (01) ==
LOC: ED 18:06
DX: M79.671 Pain in right foot (principal); G80.1 Spastic diplegic cerebral palsy; R03.0 Elevated blood-pressure reading, without diagnosis of hypertension
CPT/HCPCS: 99282; 99283; J7512

== ENCOUNTER 2019-10-05 16:28 | Emergency (ER) | payer MEDICAID ==
[2019-10-05 16:41] VITALS: BP 139/76
--- NOTE | 2019-10-05 16:46 | ED Physician Documentation ---
PD HPI LOWER EXT INJURY - Stated complaint Stated Complaint: SOA/BACK/FT PX - Chief complaint Chief Complaint: Ext Problem - History obtained from History obtained from: Patient - History of Present Illness PD HPI LOW EXT INJURY LOCATION: Right, Lower leg, Foot Type of injury: Twist (had some mild twisting of right foot positioning for xray and has some spasms since. h/o CP and has spasms at times. Also has had some URI symptoms with exac of her asthma. She says steroids help both of these conditions in the past.). No: Fall, Blunt / blow Timing - onset: Yesterday Timing - details: Gradual onset, Still present Associated symptoms: No: Weakness, Numbness Similar symptoms before: Diagnosis (spastic CP with spasms and inflammation at times.) Review of Systems Constitutional: denies: Fever, Chills Nose: reports: Congestion. 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 : None HEENT: None Psych: Anxiety Musculoskeletal: Osteoarthritis Derm: None - Past Surgical History Past Surgical History: Yes /GLOBAL SALES DIRECTOR: section - Present Medications Home Medications: Ambulatory Orders Medication Instructions Recorded Confirmed Albuterol Sulfate [Albuterol 2 puffs INH Q6HR 06/12/14 05/16/17 Sulfate Hfa] Fluticasone/Salmeterol [Advair 1 puffs INH DAILY 06/12/14 05/16/17 500-50 Diskus] Hydroxyzine HCl 25 mg PO DAILY 06/12/14 05/16/17 oxyCODONE [Roxicodone] 5 mg PO DAILY 06/12/14 05/16/17 Fluticasone [Flonase] 1 sprays TAMMY BID #1 bottle 03/08/15 05/16/17 Butalb/Acetaminophen/Caffeine 1 tab PO PRN PRN 05/16/17 05/16/17 [Rqxtiv-Lzbwhlpf-Fgwd 50-325-40] LORazepam [Ativan] 0.5 mg PO Q8H PRN #7 tablet 05/16/17 predniSONE [Prednisone] 40 mg PO DAILY #10 tablet 05/16/17 Amoxicillin 500 mg PO Q8H #30 capsule 09/11/17 Oxymetazoline HCl [Afrin] 2 spray NS BID PRN #1 bottle 09/11/17 predniSONE [Deltasone] 60 mg PO DAILY 5 Days tablet 09/11/17 Albuterol Sulf [Ventolin Hfa 1 - 2 puffs INH Q4HR PRN #1 inhaler 10/06/17 Inhaler] Azithromycin [Zithromax] 250 mg PO DAILY #4 tablet 10/06/17 Benzonatate [Tessalon] 100 mg PO TID PRN #25 capsule 10/06/17 dexAMETHasone [Decadron] 4 mg PO DAILY #5 tablet 10/06/17 guaiFENesin/CODEINE [Robitussin AC] 10 ml PO Q6H PRN #240 ml 10/06/17 Cyclobenzaprine [Flexeril] 10 mg PO TID PRN #20 tablet 06/12/18 HYDROcod/ACETAM 5/325 [[place] 5/325] 1 - 2 ea PO Q6H PRN #15 tablet 06/12/18 predniSONE [Prednisone] 40 mg PO DAILY #6 tablet 06/12/18 Benzonatate [Tessalon Perle] 100 - 200 mg PO TID PRN #30 capsule 09/12/18 Ketotifen Fumarate 2 drops OP QID #1 bottle 05/08/19 Sulfacetamide 10% Ophth Drops 1 drops OPTH Q3H #1 bottle 05/08/19 [Sulfamide 10% Ophth Drops] Hydrocodone/Acetaminophen 1 - 2 each PO Q6H PRN #14 tablet 07/05/19 [Hydrocodon-Acetaminophen 5-325] predniSONE [Deltasone] 60 mg PO DAILY 5 Days #15 tablet 07/05/19 dexAMETHasone [Decadron] 4 mg PO DAILY #7 tablet 10/05/19 - Allergies Allergies/Adverse Reactions: Allergies Allergy/AdvReac Type Severity Reaction Status Date / Time baclofen Allergy Respiratory Verified 10/05/19 16:37 NSAIDS (Non-Steroidal Allergy Edema Verified 10/05/19 16:37 Anti-Inflamma ipratropium AdvReac Unknown Verified 10/05/19 16:37 - Social History Does the pt smoke?: No Smoking Status: Never smoker Does the pt drink ETOH?: No Does the pt have substance abuse?: No - Immunizations Immunizations are current?: No - POLST Patient has POLST: No PD ED PE NORMAL - Vitals Vital signs reviewed: Yes - General General: Alert and oriented X 3, No acute distress, Well developed/nourished - HEENT HEENT: Moist mucous membranes, Pharynx benign - Neck Neck: Supple, no meningeal sign, No adenopathy - Cardiac Cardiac: RRR, No murmur - Respiratory Respiratory: No: Clear bilaterally (mild exp wheezes noted. No work of breathing. ) - Derm Derm: Normal color, Warm and dry - Extremities Extremities: Other (feet with some lateral deviation and deformity c/w CP. no noted sores/redness/drainage. ) - Neuro Neuro: Alert and oriented X 3, No motor deficit, No sensory deficit Results - Vitals Vitals: Vital Signs - 24 hr 10/05/19 16:37 Temperature 36.6 C Heart Rate 106 H Respiratory 18 Rate Blood Pressure 139/76 H O2 Saturation 97 Oxygen O2 Source Room air PD MEDICAL DECISION MAKING - ED course Complexity details: considered differential (she has muscle spasms of foot/leg and also some URI symptoms with asthma exac and says steroid helps with both. Just needs steroids. Has nebulizer and muscle relaxants. ), d/w patient Departure - Departure Disposition: 01 Home, Self Care Clinical Impression: Muscle spasm of right lower extremity Exacerbation of asthma Qualifiers: Asthma severity: mild Asthma persistence: intermittent Qualified Code(s): J45.2 1 - Mild intermittent asthma with (acute) exacerbation Condition: Stable Record reviewed to determine appropriate education?: Yes Follow-Up: Michael Belcher [Primary Care Provider] - Prescriptions: dexAMETHasone [Decadron] 4 mg PO DAILY #7 tablet Comments: Decadron steroid daily for a week. Hopefully this will help your foot and leg as well as your asthma. Continue other usual medicines and nebulizers. Discharge Date/Time: 10/05/19 17:28
[2019-10-05] MEDS ORDERED: DEXAMETHASONE 10 MG/ML VIAL PO STA (17:10)
[2019-10-05] MEDS ORDERED: CHERRY SYRUP 10 ML UDC PO ONE (17:10)
== END 2019-10-05 17:28 | disposition home or self-care (01) ==
LOC: ED 16:28
DX: M62.831 Muscle spasm of calf (principal); M79.671 Pain in right foot; J45.21 Mild intermittent asthma with (acute) exacerbation; J06.9 Acute upper respiratory infection, unspecified
CPT/HCPCS: 99282; 99283; A9270

== ENCOUNTER 2020-04-17 08:00 | Outpatient (CLI) | payer MEDICAID | END 2020-04-17 23:59 | disposition home or self-care (01) | LOC: LAB 08:00 | PROVIDERS: ATTEND Pediatrics | DX: Z20.828 Contact with and (suspected) exposure to other viral communicable diseases (principal) | CPT/HCPCS: 81599 ==

== ENCOUNTER 2021-02-22 21:07 | Emergency (ER) | payer MEDICAID ==
--- NOTE | 2021-02-22 21:44 | ED Physician Documentation ---
PD HPI HEENT - Stated complaint Stated Complaint: OBJECT IN THROAT - Chief complaint Chief Complaint: Heent - History obtained from History obtained from: Patient - History of Present Illness Timing - onset: Today Timing - details: Abrupt onset Location: Throat Similar symptoms before: Has not had sx before Recently seen: Not recently seen - Additional information Additional information: tonight while swallowing a piece of crusty bread, patient had sensation that the bread/crust had become lodged in the back of her throat, specifically on the left side. She has tried gargling and probing with a q-tip but the sensation continues. She has not actually visualized a FB in her throat. She denies dyspnea, denies coughing. Review of Systems Throat: reports: Other (sensation of stuck FB left side of back of throat). 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 : None HEENT: None Psych: Anxiety Musculoskeletal: Osteoarthritis Derm: None - Past Surgical History Past Surgical History: Yes /PLASMA SPECIALIST: section - Present Medications Home Medications: Ambulatory Orders Medication Instructions Recorded Confirmed Cetirizine HCl [Zyrtec] 10 mg PO DAILY 02/22/21 02/22/21 Clonidine HCl [Clonidine HCl ER] 0.1 mg PO DAILY 02/22/21 02/22/21 Dextroamphetamine/Amphetamine 25 mg PO DAILY 02/22/21 02/22/21 [Adderall Xr 25 mg Capsule] Fluticasone/Salmeterol [Advair PRN PRN 02/22/21 500-50 Diskus] LORazepam [Ativan] 1 mg PO TID 02/22/21 02/22/21 LORazepam [Ativan] 1 mg PO TID 02/22/21 02/22/21 Methocarbamol [Robaxin-750] 750 mg PO TID 02/22/21 02/22/21 Oxycodone HCl 10 mg PO QID 02/22/21 02/22/21 Sertraline HCl 200 mg PO DAILY 02/22/21 02/22/21 cloNIDine [Catapres] 0.2 mg PO HS 02/22/21 02/22/21 - Allergies Allergies/Adverse Reactions: Allergies Allergy/AdvReac Type Severity Reaction Status Date / Time baclofen Allergy Respiratory Verified 02/22/21 21:12 NSAIDS (Non-Steroidal Allergy Edema Verified 02/22/21 21:12 Anti-Inflamma ipratropium AdvReac Unknown Verified 02/22/21 21:12 - Social History Does the pt smoke?: No Smoking Status: Never smoker Does the pt drink ETOH?: No Does the pt have substance abuse?: No - Immunizations Immunizations are current?: No - POLST Patient has POLST: No PD ED PE NORMAL - Vitals Vital signs reviewed: Yes - General General: Alert and oriented X 3, No acute distress, Well developed/nourished - HEENT HEENT: Moist mucous membranes, Pharynx benign - Neck Neck: Supple, no meningeal sign Results - Vitals Vitals: Vital Signs - 24 hr 02/22/21 02/22/21 21:12 22:34 Temperature 36.5 C 36.7 C Heart Rate 85 79 Respiratory 16 16 Rate Blood Pressure 159/82 H 142/79 H O2 Saturation 98 99 Oxygen O2 Source Room air PD MEDICAL DECISION MAKING - ED course Complexity details: considered differential, d/w patient ED course: I cannot visualized any FB. I had patient swallow 5 ml of viscous lidocaine to facilitate exam and I was able to visualize the entirety of the left tonsil; I also attempted fine suction of folds immediately below the left tonsil without retrieval of any FB. It is likely a swallowed piece of crusty bread caused an abrasion that is giving sensation of FB. If there is such a FB, being organic it will likely soften and dislodge on its own. I encouraged patient to return if worse, follow up with primary care provider if sensation persists Departure - Departure Disposition: 01 Home, Self Care Clinical Impression: Foreign body in throat Condition: Good Instructions: ED Foreign Body Swallowed Adult Comments: As we discussed, I do not see a foreign body on exam. Possibilities include a foreign body that it out of my visual line of inspection as well as an abrasion left behind by a foreign body. Since the foreign body in question is a piece of bread/crust, it will likely soften and should become loose enough to dislodge (if it is still there). If you feel there is still a foreign body in 1-2 days, contact your primary care provider to arrange for reevaluation Discharge Date/Time: 02/22/21 22:36
[2021-02-22] MEDS ORDERED: LIDOCAINE VISCOUS 2% 15 ML UDC MM STA (22:07)
[2021-02-22 22:35] VITALS: BP 142/79
== END 2021-02-22 22:36 | disposition home or self-care (01) ==
LOC: ED 21:07
DX: R09.89 Other specified symptoms and signs involving the circulatory and respiratory systems (principal); T17.228A Food in pharynx causing other injury, initial encounter
CPT/HCPCS: 99282; 99283

== ENCOUNTER 2024-06-23 21:47 | Emergency (ER) | payer MEDICAID ==
[2024-06-23 22:19] VITALS: BP 144/63; O2SAT 98
--- NOTE | 2024-06-23 22:32 | ED Physician Documentation ---
History of Present Illness - Stated complaint Stated Complaint: SOA/L LEG PX - Chief complaint Chief Complaint: Ext Problem - History obtained from History obtained from: Patient - Additonal information Additional information: 48-year-old with history of asthma and cerebral palsy. She is here mostly with shortness of breath. Stating that her Advair ran out and she is having trouble with her insurance. She feels wheezy and has a dry cough with mild production of sputum. She also notes some left leg swelling. She does have remote history of some sort of blood clot in her 20s. Not currently anticoagulated. No chest pain. 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: section - Present Medications Home Medications: Ambulatory Orders Medication Instructions Recorded Confirmed Cetirizine HCl [Zyrtec] 10 mg PO DAILY 02/22/21 02/22/21 Dextroamphetamine/Amphetamine 25 mg PO DAILY 02/22/21 02/22/21 [Adderall Xr 25 mg Capsule] Fluticasone Propion/Salmeterol PRN PRN 02/22/21 [Advair 500-50 Diskus] LORazepam [Ativan] 1 mg PO TID 02/22/21 02/22/21 LORazepam [Ativan] 1 mg PO TID 02/22/21 02/22/21 Oxycodone HCl 10 mg PO QID 02/22/21 02/22/21 Sertraline HCl 200 mg PO DAILY 02/22/21 02/22/21 cloNIDine HCL [Clonidine HCl ER] 0.1 mg PO DAILY 02/22/21 02/22/21 cloNIDine [Catapres] 0.2 mg PO HS 02/22/21 02/22/21 methocarbamoL [Robaxin-750] 750 mg PO TID 02/22/21 02/22/21 Compression Socks, Large 1 each MC ONCE #1 each 06/23/24 [Lifestylecomfort Socks] predniSONE [Deltasone] 20 mg PO [id number] #21 tab 06/23/24 - Allergies Allergies/Adverse Reactions: Allergies Allergy/AdvReac Type Severity Reaction Status Date / Time baclofen Allergy Respiratory Verified 06/23/24 21:50 NSAIDS (Non-Steroidal Allergy Edema Verified 06/23/24 21:50 Anti-Inflamma ipratropium AdvReac Unknown Verified 06/23/24 21:50 - Social History Does the pt smoke?: No Smoking Status: Never smoker Does the pt drink ETOH?: No Does the pt have substance abuse?: No - Immunizations Immunizations are current?: No - POLST Patient has POLST: No PD ED PE NORMAL - Vitals Vital signs reviewed: Yes - General General: Alert and oriented X 3, No acute distress - Cardiac Cardiac: RRR, No murmur - Respiratory Respiratory: Other (Very mild expiratory wheezes, no labored breathing.) - Abdomen Abdomen: Non tender - Derm Derm: Normal color, Warm and dry - Extremities Extremities: Other (Mild pedal edema of the calf and ankle area on the left without signs of infection.) - Neuro Neuro: Alert and oriented X 3, Normal speech Results - Vitals Vitals: Vital Signs - 24 hr 06/23/24 06/23/24 21:50 22:15 Temperature 36.5 C Heart Rate 80 70 Respiratory 16 20 Rate Blood Pressure 144/59 H 144/63 H O2 Saturation 96 98 Oxygen O2 Source Room air - Labs Labs: Laboratory Tests 06/23/24 06/23/24 22:37 22:37 D-Dimer 227.0 Sodium 141 Potassium 3.5 Chloride 106 Carbon Dioxide 30 Anion Gap 5.0 L BUN 17 Creatinine 0.8 Estimated GFR (MDRD) 76 L Glucose 88 Calcium 9.2 PD Medical Decision Making - ED course ED course: 48-year-old woman with asthma exacerbation that is mild and wanting some steroids which is perfectly reasonable. She also has left ankle swelling. She presents with an hour where I do not have access to ultrasonography to rule out DVT. We discussed options includin. D-dimer and if negative discharge without anticoagulants and if positive, anticoagulation and return to ED tomorrow for ultrasound 2. Presumptive anticoagulation with return to ED tomorrow for ultrasound She opted for the first option. Subsequently her D-dimer and Bmp were normal. Departure - Departure Disposition: 01 Home, Self Care Clinical Impression: Left leg swelling Asthma exacerbation Qualifiers: Asthma severity: moderate Asthma persistence: persistent Qualified Code(s): J45.41 - Moderate persistent asthma with (acute) exacerbation Condition: Good Record reviewed to determine appropriate education?: Yes Instructions: Asthma Dc Prescriptions: predniSONE [Deltasone] 20 mg PO [id number] #21 tab Compression Socks, Large [Lifestylecomfort Socks] 1 each MC ONCE #1 each Comments: I sent your prescription electronically to the [facility] in [place]. Your D-dimer was negative which presumptively rules out blood clots. Call your doctor to arrange a follow-up appointment, make the next available appointment. In the interim, return anytime if worse or if new symptoms develop. Forms: PCP List, Activity restrictions
[2024-06-23] MEDS: predniSONE 20 MG TABLET PO STA (22:54)
[2024-06-23 23:02] LABS: CALCIUM 9.2 mg/dL (8.5-10.3); CREATININE 0.8 mg/dL (0.6-1.3); POTASSIUM 3.5 mmol/L (3.5-4.5)
== END 2024-06-23 23:16 | disposition home or self-care (01) ==
LOC: ED 21:47
DX: J45.41 Moderate persistent asthma with (acute) exacerbation (principal); M79.89 Other specified soft tissue disorders; Z86.718 Personal history of other venous thrombosis and embolism; Z79.899 Other long term (current) drug therapy; Z79.51 Long term (current) use of inhaled steroids
CPT/HCPCS: 36415; 80048; 85379; 99283; 99284; J7512